=== PATIENT | male | born 1950 | race Caucasian/White ===

== ENCOUNTER 2025-01-02 14:17 | Outpatient (REF) | payer MEDICARE, SELFPAY ==
--- OUTSIDE RECORDS SUMMARY | 2025-01-02 15:19 | XMS_ITS | Clinical Summary ---
Author Organization [facility] Address [address] [place] [address] Phone Care Team Providers Care Bumper Operator Name Role Phone Caesar West DO Primary Care Provider [phone] Allergies Active Allergy Reactions Criticality Noted Date Comments Penicillins Anaphylaxis High 12/17/2024 Medications montelukast (SINGULAIR) 10 mg tablet Take 10 mg by mouth daily. Active budesonide-for moterol (SYMBICORT) 160-4.5 mcg/actuation inhaler USE 1 INHALATION BY MOUTH TWICE DAILY- EVERY DAY Active VENTOLIN HFA 90 mcg/actuation inhaler Inhale 2 puffs into the lungs every 4 (four) hours. Active predniSONE (DELTASONE) 20 MG tablet TAKE 1 TABLET BY MOUTH EVERY DAY NEEDED FOR FLARE UPS OF COPD 5 Active telmisartan (MICARDIS) 40 MG tablet Take 1 tablet by mouth every morning. 5 Active traMADoL (ULTRAM) 50 mg tablet Take 50 mg by mouth every 6 (six) hours as needed. Active olmesartan (BENICAR) 20 mg tablet Take 20 mg by mouth daily. 12/18/19 25 Discontinu ed(No longer taking) Hospital, Clinic, or Other Facility Administered Medication Ordered Dose Route Frequency Start Date End Date Status aspirin chewable tablet 324 mgIndications:Chest pain, unspecified type 324 mg Oral Daily 12/17/2024 Active Active Problems No known active problems Encounters Date Type Department Care Team Description 01/02/2025 Transcribe Orders Virtual Department [address] [place] [address] Caesar West DO Disorientation (Primary Dx) 12/17/2024 11:00 AM EDT Office Visit [facility] [address] [address] Eliza Avelar, Arcelia Salazar, [place] Chest pain, unspecified type (Primary Dx); Shortness of breath from Last 3 Months Immunizations No known immunizations Social History Tobacco Use Types Packs/Day Years Used Date Smoking Tobacco: Never Assessed Education Answer Date Recorded Are you interested in more education? Not on chasity e 12/17/2024 Are you concerned about learning? Not on file 12/17/2024 No 12/17/2024 No 12/17/2024 Digital Access Answer Date Recorded No 12/17/2024 No 12/17/2024 Reliable internet access at home? Not on file 12/17/2024 Device with a working camera? Not on file Sex and Gender Information Value Date Recorded Sex Assigned at Not on file Legal Sex Male 10:02 PM EDT Gender Identity Not on file Sexual Orientation Not on file Last Filed Vital Signs Vital Sign Reading Time Taken Comments Blood Pressure 189/93 12/17/2024 12:11 PM EDT Pulse 78 12/17/2024 12:11 PM EDT Temperature 36.8 C (98.2 F) 12/17/2024 11:30 AM EDT Respiratory Rate 17 12/17/2024 11:30 AM EDT Oxygen Saturation 100% 12/17/2024 12:11 PM EDT Inhaled Oxygen Concentration - - Weight - - Height - - Body Mass Index - - Plan of Treatment Health Maintenance Due Date Last Done Comments Adult Td,Tdap Booster 1950 CREATININE LEVEL 1950 LIPID PANEL 1950 POTASSIUM LEVEL 1950 DEPRESSION SCREENING 1962 SMOKING Hx and SMOKELESS TOBACCO SCREENING 1963 HEPATITIS C SCREENING 1968 COLOGUARD 1995 COLONOSCOPY 1995 COLORECTAL CANCER SCREENING 1995 FIT TEST 1995 FOBT 1995 SIGMOIDOSCOPY 1995 VIRTUAL COLONOSCOPY 1995 PNEUMOCOCCAL VACCINES (50+ years) (1 of 1 - PCV) 2000 ZOSTER VACCINES (1 of 2) 2000 COVID-19 VACCINE (8 - 2024-25 season) 2024 01/25/2024, 02/23/2023, 01/24/2022, Additional history exists RSV VACCINE (1 - 1-dose 75+ series) 2025 HEPATITIS A VACCINES Aged Out No long er eligible based on patient's age to complete this topic HIB VACCINES Aged Out No longer eligi ble based on patient's age to complete this topic MENINGOCOCCAL VACCINES (ACWY) Aged Out No longer eligible based on patient's age to complete this topic MENINGOCOCCAL VACCINES (B) Aged Out N o longer eligible based on patient's age to complete this topic Medical Devices Not on file Insurance MEDICARE PART A & B Member Subscriber Plan / Payer (Ef fective 2015-Present) Name:Smith Moore Member ID:[id number] Relation to Subscriber:Self Name:Oscar Smith Patricia Subscriber ID:[id number] Payer ID:[id number] Group ID:Not on file Type:Medicare Address: [facility] [employer] [facility] [employer] [facility] [address] [place] [address] [facility] MEDICARE SUPPLEMENT [facility] [place] Address: [facility] [id number] [place] [address] MEDICARE PART A & B MEDICARE SUPPLEMENT MEDICARE PART A & B MEDICARE PART A & B MEDICARE PART A & B MEDICARE SUPPLEMENT MEDICARE PART A & B MEDICARE PART A & B [id number] [place] [address] MEDICARE SUPPLEMENT MEDICARE PART A & B [facility] MEDICARE SUPPLEMENT MEDICARE PART A & B Member Subscriber Plan / Payer (Ef fective 2015-Present) Name:Smith Moore Member ID:[id number] Relation to Subscriber:Self Name:Smith Moore Subscriber ID:[id number] Payer ID:[id number] Group ID:Not on file Type:Medicare Address: [facility] [employer] [facility] [facility] [address] [place] [phone] [facility] MEDICARE SUPPLEMENT Care Teams Bumper Operator Relationship Specialty Start Date End Date Caesar West DO [address] [place] [address] [email or web address] PCP - General Internal Medicine 12/17/24 Additional Source Comments The information contained in this document represents components of the legal health record. It is not the complete legal health record.[facility]
[2025-01-02 17:14] LABS: MANUAL DIFF FLAG NO
[2025-01-02 17:42] LABS: Hematocrit 39.6 % (42.0-52.0); Hemoglobin 13.8 g/dl (14.0-18.0); Imm Gran Abs Auto 0.05 X10*3/uL (0.00-0.03); Imm Gran Pct Auto 0.6 % (0.0-0.4); Lymphocytes Absolute Auto 2.2 X10*3/uL (1.2-4.9); Mean Corpuscular HGB Conc 34.8 g/dl (31.0-36.0); Mean Corpuscular Hemoglobin 28.5 pg (27.0-33.0); Mean Corpuscular Volume 81.6 fL (80.0-98.0); NRBC Abs Auto 0.000 X10*3/uL (0.0-0.012); NRBC Pct Auto 0.0 /100WBC (0.0-0.2); Platelet Count 330 X10*3/uL (160-400); Red Blood Count 4.85 X10*6/uL (4.60-5.80); White Blood Count 8.4 X10*3/uL (4.8-10.8)
[2025-01-02 17:55] LABS: INTERNATIONAL NORM RATIO 1.1 (0.9-1.1); Prothrombin Time 12.2 SEC (10.9-12.4)
[2025-01-02 18:04] LABS: Alanine Aminotransferase 22 U/L (0-40); Albumin Level 4.3 g/dL (3.5-5.0); Alkaline Phosphatase 71 U/L (39-117); Anion Gap 16 (12-20); Aspartate Amino Transferase 45 U/L (5-37); Blood Urea Nitrogen 19 mg/dL (9-16); Calcium 9.3 mg/dL (8.4-10.2); Carbon Dioxide 20 mmol/L (22-29); Chloride 102 mmol/L (96-108); Estimated Glomerular Filt Rate > 60; Iron 63 mcg/dL (45-160); Percent Iron Saturation 28 % (15-50); Potassium 4.0 mmol/L (3.3-5.1); Sodium 134 mmol/L (135-145); Total Iron Binding Capacity 226 mcg/dL (228-428); Total Protein 6.6 g/dL (6.5-8.0); Unsaturated Iron Binding 163 ug/dL
[2025-01-02 18:17] LABS: Prostate Specific Antigen 2.69 ng/mL (<0.05-4.0)
[2025-01-02 18:31] LABS: Folate 2.9 ng/mL (> or = 4.0); Vitamin B12 192 pg/mL (200-900)
== END 2025-01-02 14:18 | disposition home or self-care (01) ==
LOC: HO.MANLDS 14:17
PROVIDERS: Visit Provider Internal Medicine
DX: R41.0 Disorientation, unspecified (principal); R33.9 Retention of urine, unspecified; R63.4 Abnormal weight loss; R53.83 Other fatigue; Z12.5 Encounter for screening for malignant neoplasm of prostate; Z51.81 Encounter for therapeutic drug level monitoring
CPT/HCPCS: 36415; 80053; 82248; 82306; 82607; 82746; 83540; 84153; 84443; 85025; 85610; 85652; 86140

== ENCOUNTER 2025-02-05 09:45 | Outpatient (REF) | payer MEDICARE, SELFPAY ==
--- OUTSIDE RECORDS SUMMARY | 2025-02-05 11:45 | XMS_ITS | Encounter Summary ---
Author Organization [facility] Address [address] [place] [address] Phone Care Team Providers Care Ladle Repairer Name Role Phone Caesar West Primary Care Provider Encounter Details Date Type Department Care Team (Late st Contact Info) Description 01/07/2025 Procedure Pass [facility], Ct Scan - [address] [address] Social History Tobacco Use Types Packs/Day Years Used Date Smoking Tobacco: Never Assessed Education Answer Date Recorded Are you interested in more education? Not on chasity e 12/17/2024 Are you concerned about learning? Not on file 12/17/2024 No 12/17/2024 No 12/17/2024 Food Answer Date Recorded Within the past 6 months we worried whether our food would run out before we got money to buy more. Never True 01/07/2025 Within the past 6 months the food we bought just didn't last and we didn't have enough money to get more. Never True Residential Stability Answer Date Recor ded What is your housing situation today? I have adrienne sing 01/07/2025 How many times have you move d in the past 12 months? Zero (I did not move) 01/07/2025 Paying for Meds Answer Date Recorded Do you have trouble paying for medicines? No 01/07/2025 Paying Utility Bills Answer Date Record ed Do you have trouble paying your heating or elect ricity bill? No 01/07/2025 Transportation Answer Date Recorded Has the lack of transportati on kept you from medical appointments or from getting medications? No 01/07/2025 Digital Access Answer Date Recorded No 01/07/2025 Yes 01/07/2025 Do you have reliable internet access at home? Ye s 01/07/2025 Do you have a device (e.g., phone, tablet, computer) with a working camera? Yes 01/07/2025 Intimate Partner Violence Answer Date R ecorded Are you denied basic needs s uch as food, clothing, or medical care? No 01/07/2025 In the past 12 months have y ou been in a relationship with a person who hurts, threatens, or tries to control you? No 01/07/2025 Are you denied basic needs s uch as food, clothing, or medical care? No 01/07/2025 In the past 12 months have y ou been in a relationship with a person who hurts, threatens, or tries to control you? No 01/07/2025 Sex and Gender Information Value Date Recorded Sex Assigned at Not on file Legal Sex Male 10:02 PM EDT Gender Identity Not on file Sexual Orientation Not on file documented as of this encounter Functional Status * Calculated C-SSRS Risk Score (Lifetime/Recent) Answer Date of Assessment Author No Risk Indicated 01/07/2025 2:47 PM EDT Loc Nelson RN * [place] Suicide Severity Rating Scale (Screener/Recent Self-Report) Question Answer Date of Assessment Author 1. Wish to be (Past 1 Month) No 025 2:47 PM EDT Loc Nelson, ERYN 2. Non-Specific Active Suici nilay Thoughts (Past 1 Month) No 01/07/2025 2:47 PM EDT Loc Nelson RN 6. Suicidal Behavior (Lifetime) No 5 2:47 PM EDT Loc Nelson, ERYN documented as of this encounter Plan of Treatment Not on file documented as of this encounter Visit Diagnoses Not on filedocumented in this encounter Care Teams Ladle Repairer Relationship Specialty Start Date End Date Caesar West DO [address] [place] [address] PCP - General Internal Medicine 12/17/24 documented as of this encounter Additional Source Comments The information contained in this document represents components of the legal health record. It is not the complete legal health record.[facility]
--- OUTSIDE RECORDS SUMMARY | 2025-02-05 11:45 | XMS_ITS | Encounter Summary ---
Author Organization [facility] Address [address] [place] [address] Phone Care Team Providers Care Mill Supervisor Name Role Phone Caesar West DO Primary Care Provider [phone] Reason for Referral * MRI/CAT Scan - Authorized Specialty Diagnoses / Procedures Referred By Bettina t Referred To Contact Radiology Diagnoses Disorientation Procedures MRI Brain Caesar West DO [address] [facility] [place] [address] Phone: tel: fax: [email or web address] Referral ID Status Reason Start Date Expiration Date V isits Requested Visits Authorized [id number] Authorized 01/02/2025 01/02/2026 1 1 Encounter Details Date Type Department Care Team (Late st Contact Info) Description 01/02/2025 Transcribe Orders Virtual Department [address] [place] [address] Caesar West DO [address] [facility] [place] [address] [email or web address] Disorientation (Primary Dx) Social History Tobacco Use Types Packs/Day Years [...] on file documented as of this encounter Plan of Treatment Scheduled Orders Name Type Priority Associated Diagnoses Orde r Schedule MRI Brain Imaging Routine Disorientation Expected: 01/02/2025, Expires: 01/02/2026 documented as of this encounter Visit Diagnoses Diagnosis Disorientation- Primary Other general symptoms documented in this encounter Care Teams Mill Supervisor Relationship Specialty Start Date End Date Caesar West DO [address] [place] [phone] [email or web address] PCP - General Internal Medicine 12/17/24 documented as of this encounter Additional Source Comments The information contained in this document represents components of the legal health record. It is not the complete legal health record.[facility]
--- OUTSIDE RECORDS SUMMARY | 2025-02-05 11:45 | XMS_ITS | Encounter Summary ---
Author Organization [facility] Address [address] [facility] [address] [place] [address] Phone Care Team Providers Care Bottom Turning Lathe Tender Name Role Phone Caesar West Primary Care Provider [phone] Encounter Details Date Type Department Care Team (Late st Contact Info) Description 01/07/2025 Procedure Pass [facility], Ct Scan - [address] [address] Social History Tobacco Use Types Packs/Day Years [...] 2:47 PM EDT Loc Nelson RN * [place] Suicide Severity Rating Scale (Screener/Recent Self-Report) Question [...] on filedocumented in this encounter Care Teams Bottom Turning Lathe Tender Relationship Specialty Start Date End Date Caesar West DO [address] [place] [address] PCP - General Internal Medicine 12/17/24 documented as of this encounter Additional Source Comments The information contained in this document represents components of the legal health record. It is not the complete legal health record.[facility]
--- OUTSIDE RECORDS SUMMARY | 2025-02-05 11:45 | XMS_ITS | Clinical Summary ---
Author Organization [facility] Address [address] [facility] [address] [place] [id number] Phone Care Team Providers Care Call Center Coordinator Name Role Phone Caesar West Primary Care Provider [phone] Allergies Active Allergy Reactions Criticality Noted Date Comments Penicillins Anaphylaxis High 12/17/2024 Medications budesonide-for moterol (SYMBICORT) 160-4.5 mcg/actuation inhaler USE 1 INHALATION BY MOUTH TWICE DAILY- EVERY DAY Active VENTOLIN HFA 90 mcg/actuation inhaler Inhale 2 puffs into the lungs every 4 (four) hours. Active predniSONE (DELTASONE) 20 MG tablet TAKE 1 TABLET BY MOUTH EVERY DAY NEEDED FOR FLARE UPS OF COPD 5 Active traMADoL (ULTRAM) 50 mg tablet Take 50 mg by mouth every 6 (six) hours as needed. 5 Active atorvastatin (LIPITOR) 80 MG tablet Take 80 mg by mouth daily. 5 Active aspirin 81 MG EC tablet Take 81 mg by mouth daily. 5 Active cyanocobalamin , vitamin B-12, 1000 MCG tablet Take 1,000 mcg by mouth daily. 5 Active montelukast (SINGULAIR) 10 mg tablet Take 10 mg by mouth daily. 01/16/20 25 Discontinu ed(Therapy Completed/ No Longer Necessary) telmisartan (MICARDIS) 40 MG tablet Take 1 tablet by mouth every morning. 5 01/16/20 25 Discontinu ed(Therapy Completed/ No Longer Necessary) Hospital, Clinic, or Other Facility Administered Medication Ordered Dose Route Frequency Start Date End Date Status aspirin chewable tablet 324 mgIndications:Chest pain, unspecified type 324 mg Oral Daily 12/17/2024 Active Active Problems Problem Noted Date Diagnosed Date Hiatal hernia 01/08/2025 Constipation 01/08/2025 Encounters Date Type Department Care Team Description 01/29/2025 11:30 AM EDT Home Care Visit [facility] [address] [place] [phone] Dona Wheeler, PT PT OASIS DISCHARGE VISIT 01/24/2025 12:00 PM EDT Home Care Visit [facility] [address] [place] [address] Evy Jacobs, RETAIL STORE ASSISTANT RETAIL STORE ASSISTANT HOME VISIT 01/22/2025 2:00 PM EDT Home Care Visit [facility] [address] [place] [address] Evy Jacobs, RETAIL STORE ASSISTANT RETAIL STORE ASSISTANT HOME VISIT 01/22/2025 Episode Documentation Update [facility] [address] [place] [address] Ria Cardoso 01/17/2025 10:00 AM EDT Home Care Visit [facility] [address] [place] [address] Marly Don, RETAIL STORE ASSISTANT RETAIL STORE ASSISTANT HOME VISIT 01/15/2025 9:00 AM EDT Home Care Visit [facility] [address] [place] [address] Dona Wheeler, PT PT OASIS START OF CARE (SOC) 01/15/2025 Plan of Care Documentation [facility] [address] [place] [address] 01/11/2025 Home Care Visit [facility] [address] [place] [address] Kaia Weaver, RN CASE COMMUNICATION 01/08/2025 Orders Only [facility] [address] [place] [address] Homehealth, Interface Provider, 01/07/2025 4:20 PM EDT - 01/08/2025 4:00 PM EDT Emergency [facility] [address] [place] [id number] Ariana Grey MD, PhD Dusty Aguero, Leandro Horn MD Devries, Stephen G, MD Discharge Disposition: Home or Self Care 01/07/2025 Procedure Pass [facility], Ct Scan [address] [address] 01/07/2025 Procedure Pass [address] [address] 01/02/2025 Transcribe Orders Virtual Department [address] [place] [id number] Caesar West DO Disorientation (Primary Dx) 12/17/2024 11:00 AM EDT Office Visit [facility] at [address] [address] Eliza Avelar, Arcelia Salazar, ELECTRONIC TECHNICIAN Chest pain, unspecified type (Primary Dx); Shortness of breath from Last 3 Months Immunizations No known immunizations Social History Tobacco Use Types Packs/Day Years Used Date Smoking Tobacco: Never Assessed Home Health Assessment: Transportation Answer Date Recorded Lack of Transportation (Medical) No 01/29/2025 Lack of Transportation (Non-Medical) No 01/29/2025 Patient Unable or Declines to Respond No 01/29/2025 Education Answer Date Recorded Are you interested [...] your housing situation today? I have adrienne biswas 01/07/2025 How many times have you move [...] Sign Reading Time Taken Comments Blood Pressure 100/60 01/29/2025 11:56 AM EDT Pulse 78 01/29/2025 11:56 AM EDT Temperature 36.6 C (97.9 F) 01/22/2025 2:28 PM EDT Respiratory Rate 18 01/22/2025 2:28 PM EDT Oxygen Saturation 97% 01/29/2025 11:56 AM EDT Inhaled Oxygen Concentration - - Weight 68 kg (150 lb) 01/20/2025 10:42 AM EDT Height 172.7 cm (5' 8 ) 01/20/2025 10:42 AM EDT Body Mass Index 22.81 01/20/2025 10:42 AM EDT Plan of Treatment Health Maintenance Due Date Last Done Comments Adult Td,Tdap Booster 1950 LIPID PANEL 1950 DEPRESSION SCREENING 1962 SMOKING Hx and SMOKELESS TOBACCO SCREENING 1963 HEPATITIS C SCREENING 1968 COLOGUARD 1995 COLONOSCOPY 1995 COLORECTAL CANCER SCREENING 1995 FIT TEST 1995 FOBT 1995 SIGMOIDOSCOPY 1995 VIRTUAL COLONOSCOPY 1995 PNEUMOCOCCAL VACCINES (50+ years) (1 of 1 - PCV) 2000 ZOSTER VACCINES (1 of 2) 2000 INFLUENZA VACCINE (#1) 2024 , 03/07/2023, 02/17/2022, Additional history exists COVID-19 VACCINE ( season) 2025 01/25/2024, 02/23/2023, 01/24/2022, Additional history exists RSV [...] this topic Medical Devices Not on file Procedures Procedure Name Priority Date/Time Associated Diagnosis Comments POCT GLUCOSE Routine 01/08/2025 3:13 PM EDT POCT GLUCOSE Routine 01/08/2025 11:22 AM EDT POCT GLUCOSE STAT 01/08/2025 4:55 AM EDT POCT GLUCOSE Routine 01/08/2025 4:53 AM EDT POCT GLUCOSE STAT 01/08/2025 12:05 AM EDT POCT GLUCOSE Routine 01/07/2025 11:59 PM EDT POCT GLUCOSE Routine 01/07/2025 10:[address] ABDOMEN/PELVIS WITH CONTRAST Routine 01/07/2025 9:49 PM EDT BASIC METABOLIC PANEL STAT 01/07/2025 9:02 PM EDT POCT GLUCOSE Routine 01/07/2025 8:41 PM EDT POCT GLUCOSE Routine 01/07/2025 7:[address] HEAD WITHOUT CONTRAST Routine 01/07/2025 7:04 PM EDT POCT GLUCOSE Routine 01/07/2025 6:12 PM EDT TROPONIN STAT 01/07/2025 5:55 PM EDT URINE SEDIMENT STAT 01/07/2025 5:38 PM EDT URINALYSIS W/REFLEX URINE CULTURE STAT 01/07/2025 5:38 PM EDT ECG 12-LEAD STAT 01/07/2025 5:03 PM EDT XR CHEST PORTABLE Routine 01/07/2025 5:0 0 PM EDT POCT GLUCOSE Routine 01/07/2025 5:00 PM EDT TROPONIN STAT 01/07/2025 4:39 PM EDT LIPASE STAT 01/07/2025 2:53 PM EDT LFTS (HEPATIC PANEL) STAT 01/07/2025 2:53 PM EDT BASIC METABOLIC PANEL STAT 01/07/2025 2:53 PM EDT CBC AND DIFFERENTIAL STAT 01/07/2025 2:53 PM EDT from Last 3 Months Results * (ABNORMAL) POCT Glucose (01/08/2025 3:13 PM EDT) Only the most recent of9 resultswithin the time period is included. Glucose, POCT 112(H) 70 - 100 mg/dL [facility] 01/08/2025 3:13 PM EDT 01/08/2025 3:16 PM EDT us Raman Leroy MD POINT OF CARE TEST ORDERABL ES Final Result [address] [address] * (ABNORMAL) POCT Glucose (01/08/2025 4:55 AM EDT) Only the most recent of2 resultswithin the time period is included. Glucose 124(A) 70 - 100 mg/dL 01/08/2025 4:55 AM EDT us Dusty Aguero DO POINT OF CARE TEST ORDERABLES Final Result * CT ABDOMEN/PELVIS WITH CONTRAST (01/07/2025 9:49 PM EDT) Anatomical Region Laterality Modality Abdomen, Pelvis Computed Tomogra phy 01/07/2025 11:1 2 PM EDT Impressions 01/07/2025 11:46 PM EDT 1. No acute abnormality in the abdomen or pelvis. 2. Large hiatal hernia containing entire stomach. ATTESTATION: I, Christelle Bangura as teaching physician, have reviewed the images for this case and if necessary edited the report originally created by Shan Doan. Narrative 01/07/2025 11:[address] ABDOMEN/PELVIS WITH CONTRAST Referring clinician's provided indication for this examination in Epic: * Abdominal pain, acute, nonlocalized; early satiety. Not eating. came in hypoglycemia. No n/v. TECHNIQUE: Multidetector-row CT of the abdomen and pelvis was performed after administration of intravenous contrast using tailored dose modulation techniques. Images were reconstructed in the axial, coronal, and sagittal planes. COMPARISON: CT ABDOM AND PELVIS WO FINDINGS: Lower Chest: Bibasilar atelectasis. No consolidation or pleural effusions. Liver: Scattered hepatic hypodensities, may represent benign cysts/hemangiomas.. Biliary: There is 3 mm gallbladder polyp (900:34). No biliary ductal dilatation. Spleen: No splenomegaly or focal lesions. Pancreas: No masses or ductal dilatation. Adrenal Glands: No nodules. Kidneys/Ureters: 5 mm right interpolar nonobstructing stone. No solid masses or hydronephrosis. Bowel: Large hiatal hernia containing entire stomach. Normal appendix. Colonic diverticulosis without diverticulitis. Normal small bowel. Peritoneum/Retroperitoneum: Normal. No masses, pneumoperitoneum, or fluid. Lymph Nodes: Normal. No lymphadenopathy. Pelvic Organs/Bladder: Underdistended urinary bladder. Prostatic enlargement.. Vessels: Atherosclerosis. No abdominal aortic aneurysm. Bones/Soft Tissues: Degenerative changes of the spine. Levoconvex curvature of lumbar spine centered at L3/4 level. Chronic anterior wedge compression deformities of T12, L1 vertebral bodies. 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 Procedure Note Christelle Bangura MD - 01/07/2025 CT ABDOMEN/PELVIS WITH CONTRAST Referring clinician's provided indication for this examination in Epic: *Abdominal pain, acute, nonlocalized; early satiety. Not eating. came inhypoglycemia. No n/v. TECHNIQUE: Multidetector-row CT of the abdomen and pelvis was performedafter administration of intravenous contrast using tailored dosemodulation techniques. Images were reconstructed in the axial, coronal,and sagittal planes. COMPARISON: CT ABDOM AND PELVIS WO FINDINGS: Lower Chest: Bibasilar atelectasis. No consolidation or pleuraleffusions. Liver: Scattered hepatic hypodensities, may represent benigncysts/hemangiomas.. Biliary: There is 3 mm gallbladder polyp (900:34). No biliary ductaldilatation. Spleen: No splenomegaly or focal lesions. Pancreas: No masses or ductal dilatation. Adrenal Glands: No nodules. Kidneys/Ureters: 5 mm right interpolar nonobstructing stone. No solidmasses or hydronephrosis. Bowel: Large hiatal hernia containing entire stomach. Normal appendix.Colonic diverticulosis without diverticulitis. Normal small bowel. Peritoneum/Retroperitoneum: Normal. No masses, pneumoperitoneum, orfluid. Lymph Nodes: Normal. No lymphadenopathy. Pelvic Organs/Bladder: Underdistended urinary bladder. Prostaticenlargement.. Vessels: Atherosclerosis. No abdominal aortic aneurysm. Bones/Soft Tissues: Degenerative changes of the spine. Levoconvexcurvature of lumbar spine centered at L3/4 level. Chronic anterior wedgecompression deformities of T12, L1 vertebral bodies. 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 IMPRESSION: 1. No acute abnormality in the abdomen or pelvis. 2. Large hiatal hernia containing entire stomach. ATTESTATION: I, Christelle Bangura as teaching physician, have reviewed theimages for this case and if necessary edited the report originally createdby Shan Doan. us Ariana Grey MD, PhD IMG CT ABD/PELVIS F inal Result * (ABNORMAL) Basic metabolic panel (01/07/2025 9:02 PM EDT) Only the most recent of2 resultswithin the time period is included. SODIUM 135 133 - 146 mmol/L [facility] CHLORIDE 103 96 - 108 mmol/L [facility] POTASSIUM 3.4 3.3 - 5.1 mmol/L [facility] CO2 16(L) 21 - 35 mmol/L [facility] BUN 9 6 - 19 mg/dL [facility] CREATININE 0.90 0.5 - 1.5 mg/dL [facility] GLUCOSE 182(H) 70 - 99 mg/dL [facility] CALCIUM 8.7 8.4 - 10.3 mg/dL [facility] EGFR 90 >59 mL/min/1.7 3m2 [facility] Comment:Estimated glomerular filtration rate calculated using the CKD-EPI refit equation. ANION GAP 19 10 - 20 mmol/L [facility] Blood 01/07/2025 9:02 PM EDT 01/07/2025 9:07 PM EDT us Ariana Grey MD, PhD LAB BLOOD ORDERABLE S Final Result [facility] [address] [place] [address] * CT HEAD WITHOUT CONTRAST (01/07/2025 7:04 PM EDT) Anatomical Region Laterality Modality Head Computed Tomogra phy 01/07/2025 8:41 PM EDT Impressions 01/07/2025 8:44 PM EDT No acute intracranial findings. Narrative 01/07/2025 8:[address] HEAD WITHOUT CONTRAST Referring clinician's provided indication for this examination in [facility]: * Mental status change, unknown cause TECHNIQUE: CT of the head was performed without intravenous contrast using tailored dose modulation techniques. Images were reconstructed in the axial, coronal, and sagittal planes. COMPARISON: None FINDINGS: Brain Parenchyma: No midline shift, mass effect, parenchymal hemorrhage, or evidence of acute territorial infarct. Ventricular System and Extra-Axial Spaces: No extra-axial fluid collections. Basal cisterns are patent. No hydrocephalus. Osseous and Extracranial Structures: No calvarial fracture or significant soft tissue hematoma. No significant paranasal sinus disease. No orbital abnormality. Procedure Note Zuleima Greenwood MD - 01/07/2025 CT HEAD WITHOUT CONTRAST Referring clinician's provided indication for this examination in [facility]: *Mental status change, unknown cause TECHNIQUE: CT of the head was performed without intravenous contrast usingtailored dose modulation techniques. Images were reconstructed in theaxial, coronal, and sagittal planes. COMPARISON: None FINDINGS: Brain Parenchyma: No midline shift, mass effect, parenchymal hemorrhage,or evidence of acute territorial infarct. Ventricular System and Extra-Axial Spaces: No extra-axial fluidcollections. Basal cisterns are patent. No hydrocephalus. Osseous and Extracranial Structures: No calvarial fracture or significantsoft tissue hematoma. No significant paranasal sinus disease. No orbitalabnormality. IMPRESSION: No acute intracranial findings. Ariana Grey MD, PhD IMG CT HEAD/NECK Fi nal Result * (ABNORMAL) Troponin (01/07/2025 5:55 PM EDT) Only the most recent of2 resultswithin the time period is included. Troponin-T, HS Gen5 29(H) 0 - 14 ng/L [facility] Blood 01/07/2025 5:55 PM EDT 01/07/2025 6:12 PM EDT Ariana Grey MD, PhD LAB BLOOD ORDERABLE S Final Result Performing Organization Address [facility] de Phone Number [address] [address] * (ABNORMAL) Urinalysis w/reflex Urine Culture (01/07/2025 5:38 PM EDT) COLOR Yellow Yellow [facility] CLARITY Clear [facility] GLUCOSE Negative Negative [facility] BILI Negative Negative [facility] KETONES 1+(A) Negative [facility] SPECIFIC GRAVITY 1.010 1.005 - 1.030 [facility] BLOOD 1+(A) Negative [facility] PH 6.0 5.0 - 8.0 [facility] Protein-UA Negative Negative [facility] NITRITE Negative Negative [facility] Leukocyte esterase, ur Negative Negative [facility] Urine (Urine) 01/07/2025 5:3 8 PM EDT 01/07/2025 6:38 PM EDT Priyank White MD URINE ORDERABLES Final Result Performing Organization Address [facility] Co de Phone Number [address] [address] * (ABNORMAL) Urine sediment (01/07/2025 5:38 PM EDT) WBC 0-4(A) NONE SEEN /hpf [facility] RBC 3-5(A) NONE SEEN /hpf [facility] URINE EPITHELIAL NONE SEEN NONE SEEN [facility] Comment:Moderate renal cells seen. MUCUS NONE SEEN NONE SEEN /hpf [facility] BACTERIA NONE SEEN NONE SEEN /hpf [facility] 01/07/2025 5:38 PM EDT 01/07/2025 6:38 PM EDT us Priyank White MD URINE ORDERABLES Final Result Performing Organization Address City/[facility]/ZIP Co de Phone Number [address] [address] * ECG 12-LEAD (01/07/2025 5:03 PM EDT) Ventricular Rate EKG/MIN 73 BPM [facility] Atrial Rate 73 BPM [facility] GA Interval 176 ms [facility] QRS Duration 86 ms [facility] QT Interval 422 ms [facility] QTC Interval 464 ms [facility] P [place] 71 degrees [facility] R Wave [place] 25 degrees [facility] T Wave [place] -6 degrees [facility] 01/07/2025 5:03 PM EDT 01/08/2025 11:13 AM EDT Narrative [facility] - 01/08/2025 11:13 AM EDT Normal sinus rhythm Normal ECG When compared with ECG of 26-Mar-2010 13:35, No significant change was found Confirmed by Allen Guzman ([id number]) on 01/08/2025 11:13:49 AM us Ariana Grey MD, PhD ECG ORDERABLES Fin al Result [facility] * XR Chest Portable (01/07/2025 5:00 PM EDT) Anatomical Region Laterality Modality Chest Computed Radiogr aphy 01/07/2025 5:57 PM EDT Impressions 01/07/2025 6:01 PM EDT 1. Approximately 2 cm density projecting over the posterior left fifth rib, possibly a bone island or other likely benign sclerotic bony lesion, less likely pulmonary nodule. 2. Large hiatal hernia. Narrative 01/07/2025 6:01 PM EDT XR CHEST PORTABLE Referring clinician's provided indication for this examination in [facility]: Dyspnea (Shortness of Breath) COMPARISON: Chest 2 views FINDINGS: Devices/Tubes/Lines: None. Lungs: Approximately 2 cm hyperdensity projecting over the posterior left fifth rib has increased in prominence compared to prior, possibly a bone island or other likely benign sclerotic bony lesion, less likely pulmonary nodule. Otherwise no consolidation or pulmonary edema. Pleura: No pleural effusions or pneumothorax. Heart/Mediastinum: Normal heart size. Tortuous thoracic aorta. Large hiatal hernia. Bones/Soft Tissues: Healed left rib fractures. Procedure Note Zuleima Greenwood MD - 01/07/2025 XR CHEST PORTABLE Referring clinician's provided indication for this examination in [facility]:Dyspnea (Shortness of Breath) COMPARISON: Chest 2 views FINDINGS: Devices/Tubes/Lines: None. Lungs: Approximately 2 cm hyperdensity projecting over the posterior leftfifth rib has increased in prominence compared to prior, possibly a boneisland or other likely benign sclerotic bony lesion, less likely pulmonarynodule. Otherwise no consolidation or pulmonary edema. Pleura: No pleural effusions or pneumothorax. Heart/Mediastinum: Normal heart size. Tortuous thoracic aorta. Largehiatal hernia. Bones/Soft Tissues: Healed left rib fractures. IMPRESSION: 1. Approximately 2 cm density projecting over the posterior left fifthrib, possibly a bone island or other likely benign sclerotic bony lesion,less likely pulmonary nodule. 2. Large hiatal hernia. Ariana Grey MD, PhD IMG XR CHEST Fin al Result * (ABNORMAL) LFTs (hepatic panel) (01/07/2025 2:53 PM EDT) ALKALINE PHOSPHATASE 72 39 - 117 U/L [facility] TOTAL BILIRUBIN 1.2 0.0 - 1.2 mg/dL [facility] DIRECT BILIRUBIN 0.4(H) 0.0 - 0.2 mg/dL [facility] Bilirubin (Indirect) 0.8 0 - 1.5 mg/dL [facility] AST 25 0 - 37 U/L [facility] ALT 16 0 - 40 U/L [facility] TOTAL PROTEIN 6.2(L) 6.5 - 8.0 g/dL [facility] ALBUMIN 3.9 3.9 - 4.8 g/dL [facility] GLOBULIN 2.3 1 - 4.8 g/dL [facility] A/G Ratio 1.70 1.00 - 4.80 RATIO [facility] Blood 01/07/2025 2:53 PM EDT 01/07/2025 3:11 PM EDT us Priyank White MD LAB BLOOD ORDERAB LES Final Result Performing Organization Address City/State/[facility] Co de Phone Number [address] [address] * (ABNORMAL) CBC and differential (01/07/2025 2:53 PM EDT) WBC 8.16 4.00 - 11.00 K/uL [facility] RBC 4.74 4.50 - 5.90 M/uL [facility] HGB 13.4(L) 13.5 - 17.5 g/dL [facility] HCT 39.4(L) 41.0 - 53.0 % [facility] PLT 294 150 - 450 K/uL [facility] MCV 83.1 80.0 - 100.0 fL [facility] MCH 28.3 27.0 - 31.0 pg [facility] MCHC 34.0 32.0 - 36.0 g/dL [facility] RDW 16.1(H) 11.5 - 14.5 % [facility] MPV 10.5 8.4 - 12.0 fL [facility] NRBC 0.00 0.00 /100 WBCs [facility] ABSOLUTE NRBC 0.00 0.00 K/uL [facility] DIFF METHOD Auto [facility] NEUTS 66.0 48.0 - 76.0 % [facility] LYMPHS 21.7 18.0 - 41.0 % [facility] MONOS 9.4 4.0 - 11.0 % [facility] EOS 1.3 0.0 - 5.0 % [facility] BASOS 1.0 0.0 - 1.5 % [facility] Granulocytes, immature (%) 0.6 0.0 - 0.9 % [facility] ABSOLUTE NEUTS 5.38 1.92 - 7.60 K/uL [facility] ABSOLUTE LYMPHS 1.77 0.72 - 4.10 K/uL [facility] ABSOLUTE MONOS 0.77 0.16 - 1.10 K/uL [facility] ABSOLUTE EOS 0.11 0.00 - 0.50 K/uL [facility] ABSOLUTE BASOS 0.08 0.00 - 0.15 K/uL [facility] Granulocytes, immature 0.05 0.00 - 0.09 K/uL [facility] Blood 01/07/2025 2:53 PM EDT 01/07/2025 3:11 PM EDT us Priyank White MD LAB BLOOD ORDERAB LES Final Result Performing Organization Address [facility] Co de Phone Number [address] [address] * Lipase (01/07/2025 2:53 PM EDT) LIPASE 30 16 - 63 U/L [facility] Blood 01/07/2025 2:53 PM EDT 01/07/2025 3:11 PM EDT us Priyank White MD LAB BLOOD ORDERAB LES Final Result Performing Organization Address [facility]/ZIP Co de Phone Number [address] [address] from Last 3 Months Insurance MEDICARE PART A & B [id number] [place] [address] MEDICARE SUPPLEMENT MEDICARE PART A & B [facility] MEDICARE SUPPLEMENT MEDICARE PART A & B MEDICARE PART A & B MEDICARE PART A & B Member Subscriber Plan / Payer (Ef fective 2015-Present) Name:MooreSmith Member ID:[id number] Relation to Subscriber:Self Name:MooreSmith Subscriber ID:[id number] Payer ID:[id number] Group ID:Not on file Type:Medicare Address: [employer] [address] MEDICARE SUPPLEMENT MEDICARE PART A & B MEDICARE PART A & B Member Subscriber Plan / Payer (Ef fective 2015-Present) Name:Smith Moore Member ID:[id number] Relation to Subscriber:Self Name:Smith Moore Subscriber ID:[id number] Payer ID:[id number] Group ID:Not on file Type:Medicare Address: [employer] [address] MEDICARE SUPPLEMENT MEDICARE PART A & B [facility] MEDICARE SUPPLEMENT MEDICARE PART A & B [facility] MEDICARE SUPPLEMENT Advance Directives For more information, please contact: [phone] (9AM - 5PM [facility], Tuesday-Tuesday) Documents on File Type Date Recorded Patient Junior Systems Analyst Expl anation Healthcare Proxy 01/09/2025 5:25 PM Healthcare Agents on File Name Relationship Healthcare Agent Relationshi p Communication Radha Moore Spouse .Primary Health Care Agent (Proxy form on file) Care Teams Call Center Coordinator Relationship Specialty Start Date End Date Caesar West DO [address] [place] [id number] [email or web address] PCP - General Internal Medicine 12/17/24 Additional Source Comments The information contained in this document represents components of the legal health record. It is not the complete legal health record.[facility]
[2025-02-05 14:50] LABS: Vitamin B12 441 pg/mL (200-900)
== END 2025-02-05 09:46 | disposition home or self-care (01) ==
LOC: HO.MANLDS 09:45
PROVIDERS: Visit Provider Internal Medicine
DX: E55.9 Vitamin D deficiency, unspecified (principal)
CPT/HCPCS: 36415; 82306; 82607